=== PATIENT | male | born 1985 | race Caucasian/White ===

== ENCOUNTER 2017-02-04 02:07 | Emergency (ER) | payer OTHER ==
[~2017-02-04] VITALS: Ht 185.4 cm; Wt 93.0 kg
[2017-02-04 02:37] VITALS: BP 163/100
[2017-02-04 02:47] LABS: BILIRUBIN,URINE NEGATIVE (NEG); GLUCOSE,URINE NEGATIVE (NEG); NITRITE,URINE NEGATIVE (NEG); PROTEIN,URINE NEGATIVE (NEG-TRACE); UROBILINOGEN,URINE 0.2 mg/dL (0.2 mg/dL)
[2017-02-04 02:58] LABS: BACTERIA,URINE 0 /HPF (0-FEW); RBC,URINE 0 /HPF (0-2); SQUAMOUS EPITHELIAL CELL,UR OCC /LPF; WBC,URINE OCC /HPF (0-4)
--- NOTE | 2017-02-04 03:10 | RAD ---
Examination: Ultrasound testis HISTORY: History of right-sided testicular pain COMPARISON: None available FINDINGS: The right testis measures 4.8 x 2.8 x 2.3 cm. The left testis measures 4.6 x 2.8 x 3.2 cm. Tiny microcalcifications identified in the bilateral testes. Blood flow identified in the right and left testis. There is questionable mild increased blood flow identified in the right testis compared to the left testis could be physiological or mild orchitis. IMPRESSION: 1. No evidence of testicular torsion. 2. Questionable mild increased blood flow identified in the right testis compared to the left testis could be physiological or mild orchitis. Correlate clinically. 3. Testicular microlithiasis. Electronically signed by: Jose F Mcdaniel MD (02/04/2017 3:06 AM) [facility]
[2017-02-04] MEDS ORDERED: DOXY100C2 PO (04:05)
--- NOTE | 2017-02-04 04:05 | PHYS DOC ---
Past Medical History Past Medical History: No Pertinent History Past Surgical History: No Surgical History Alcohol Use: Occasionally Drug Use: None Adult General Chief Complaint Chief Complaint: TESTICULAR PAIN OR INJURY HPI HPI Patient is a 31 year old male who presents with right testicular pain. Reports 1 week history of intermittent discomfort, increased today. Denies any specific injury, no weight lifting, vigorous activity. Denies fevers/chills, abdominal pain, nausea, vomiting, dysuria/hematuria, penile discharge. Previously healthy. Review of Systems Review of Systems Constitutional: Denies fever or chills Respiratory: Denies cough or shortness of breath Cardiovascular: Denies chest pain GI: Denies abdominal pain, nausea, vomiting : Reports testicular pain Musculoskeletal: Denies back pain or joint pain Integument: Denies rash Neurologic: Denies headache Current Medications Current Medications Current Medications Medications (Trade) Dose Ordered Sig/Jose L Start Time Stop Time Status Last Admin Dose Admin Ceftriaxone Sodium (Rocephin Im) 250 mg 1X ONCE 02/04/17 04:30 02/04/17 04:31 DC 02/04/17 04:22 250 MG Allergies Allergies Allergies Coded Allergies Type Severity Reaction Last Updated Verified No Known Drug Allergies 02/04/17 No Physical Exam Physical Exam Constitutional: Well developed, well nourished, no acute distress, non-toxic appearance. HENT: Normocephalic, atraumatic, bilateral external ears normal, oropharynx moist, nose normal. Eyes: conjunctiva normal, no discharge. Cardiovascular: no edema. Lungs & Thorax: no respiratory distress. Abdomen: soft, nontender, nondistended. : normal appearing male external genitalia, circumcised penis, no rash or lesions, right testicular tenderness without swelling, no masses, no inguinal hernia palpated. left testicle normal exam. Skin: Warm, dry, no erythema, no rash. Back: No CVA tenderness. Extremities: No deformity Neurologic: Alert and oriented X 3, no focal deficits noted. Psychologic: Affect normal, judgement normal, mood normal. Current Patient Data Vital Signs Vital Signs Date Time Temp Pulse Resp B/P (MAP) Pulse Ox O2 Delivery O2 Flow Rate FiO2 02/04/17 02:37 99.0 93 20 163/100 (121) 98 Room Air 99.0 Lab Values Laboratory Tests Test 02/04/17 02:30 Urine Collection Type Unknown Urine Color Yellow Urine Clarity Clear Urine pH 6.0 Urine Specific [place] <=1.005 Urine Protein Negative mg/dL (NEG-TRACE) Urine Glucose (UA) Negative mg/dL (NEG) Urine Ketones (Stick) Negative mg/dL (NEG) Urine Blood Negative (NEG) Urine Nitrite Negative (NEG) Urine Bilirubin Negative (NEG) Urine Urobilinogen Dipstick 0.2 mg/dL (0.2 mg/dL) Urine Leukocyte Esterase Negative (NEG) Urine RBC 0 /HPF (0-2) Urine WBC Occ /HPF (0-4) Urine Squamous Epithelial Cells Occ /LPF Urine Bacteria 0 /HPF (0-FEW) Urine Mucus Slight /LPF EKG EKG [] Radiology/Procedures Radiology/Procedures PROCEDURE: TESTICULAR/SCROTUM Examination: Ultrasound testis HISTORY: History of right-sided testicular pain COMPARISON: None available FINDINGS: The right testis measures 4.8 x 2.8 x 2.3 cm. The left testis measures 4.6 x 2.8 x 3.2 cm. Tiny microcalcifications identified in the bilateral testes. Blood flow identified in the right and left testis. There is questionable mild increased blood flow identified in the right testis compared to the left testis could be physiological or mild orchitis. IMPRESSION: 1. No evidence of testicular torsion. 2. Questionable mild increased blood flow identified in the right testis compared to the left testis could be physiological or mild orchitis. Correlate clinically. 3. Testicular microlithiasis. Electronically signed by: Jose F Mcdaniel MD (02/04/2017 3:06 AM) [facility] DICTATED and SIGNED BY: JOSE F MCDANIEL MD DATE: 02/04/17 030 [] Course & Med Decision Making Course & Med Decision Making Pertinent Labs and Imaging studies reviewed. (See chart for details) The patient presents with testicular pain. UA normal, US shows possible orchitis otherwise no torsion or other abnormality. Treated with rocephin & doxycycline. Recommend supportive briefs, ibuprofen for pain, follow up with PCP or urology in 1 week if not improving. Return for high fever, severe pain, uncontrolled vomiting, any otherwise worsening condition. Discharged home in stable condition. [] Dragon Disclaimer Dragon Disclaimer This electronic medical record was generated, in whole or in part, using a voice recognition dictation system. Departure Departure Impression: Primary Impression: Orchitis Disposition: 01 HOME, SELF-CARE Condition: STABLE Referrals: NO PCP (PCP) Bakari DENISE MD Patient Instructions: Orchitis Additional Instructions: You were seen in the emergency department today for testicular pain. Ultrasound showed orchitis. Please take the prescribed antibiotic. Follow up with Dr. Denise in primary care clinic, or with a urologist. Come back for high fever, severe pain, inability to urinate, any otherwise worsening condition. Scripts Doxycycline Hyclate (DOXYCYCLINE HYCLATE) 100 Mg Capsule 1 CAP PO BID, #20 CAP Prov: SUDEEP APONTE MD 02/04/17 SUDEEP APONTE MD Feb 04, 2017 04:05
[2017-02-04] MEDS ORDERED: cefTRIAXone IM 250 MG VIAL IM ONE (04:30)
== END 2017-02-04 04:36 | disposition home or self-care (01) ==
LOC: ER 02:07
DX: N45.2 Orchitis (principal)
CPT/HCPCS: 76870; 81001; 96372; 99285; J0696